=== PATIENT | male | born 1975 | race African-American/Black ===

== ENCOUNTER 2022-11-10 09:28 | Outpatient (CLI) | payer OTHER, MEDICAID, SELFPAY | END 2022-11-10 09:29 | disposition home or self-care (01) | PROVIDERS: PCP Emergency Medicine; Visit Provider Surgery | DX: Z01.812 Encounter for preprocedural laboratory examination (principal); K40.90 Unilateral inguinal hernia, without obstruction or gangrene, not specified as recurrent | CPT/HCPCS: 36415; 86850; 86900; 86901 ==

== ENCOUNTER 2022-11-13 00:11 | Day surgery (SDC) | payer OTHER, MEDICAID, SELFPAY ==
[2022-09-01 14:29] VITALS: BMI 22.8
--- NOTE | 2022-09-01 14:36 | PC.NURSE ---
Report to the Outpatient Waiting Room, entrance under the green pavilion located off [facility], at time 0800 on date _09/08/22_. Planned Procedure Time: _1000. Time changes happen often and if your time is changed the preop area will call you the afternoon before. - You and your visitor will be asked to self-screen and do not enter if you have any COVID symptoms. - Only one visitor is requested with a max of two and NO children visitors are allowed at this time. - The patient visitor may be requested to leave or wait in car when not with patient due to distancing restrictions. - A mask is optional within the hospital at this time. Patients may have clear liquids (water, carbonated beverages, clear teas, apple juice) until 3 hours prior to surgery with a maximum of 20 ounces. - No food from midnight until time of surgery - Infants may have breast milk until 4 hours before surgery, formula 6 hours prior to surgery. - Children will be allowed to drink immediately following surgery. If applicable, please bring a bottle or sippy cup to assist with drinking. Juice, water, soda, and popsicles are readily available. For infants on formula, please bring formula the day of surgery. Pacifiers are allowed. Take the following medications with a SIP of water the morning of surgery: NONE DO NOT STOP ANY OF YOUR OTHER PRESCRIPTION MEDICATIONS PRIOR TO SURGERY ?EXCEPT THE FOLLOWING Medications to discontinue per physician NONE Date to take last dose Please no make-up, nail chinese, hairspray, perfume, deodorant, or body powder the day of surgery. No jewelry (including any body piercings) or valuables the day of surgery, leave them at home. Please take a shower or bath the night before, or the morning of, surgery with an antibacterial soap, HIBICLENS soap. Wear comfortable, loose fitting clothing. Children are encouraged to wear pajamas. - Jewelry must be removed prior to entering the operating room. Rings and piercings that are not removed may be cut off. - The hospital will not accept responsibility for valuables. - Please leave all valuables, including medications, at home the day of surgery. If you are going home after surgery, a licensed pile driver operator barge mounted must drive you home. - NO public transportation without another adult if you receive anesthesia. - We recommend that an adult stay with you for 24 hours following discharge. - We also recommend that you do not drive, make important decision, drink alcoholic beverages, or take any drugs that were not prescribed by your health care provider for at least 24 hours after your discharge time. For Pediatric surgeries, we recommend two adults accompany the child home. Follow any additional instructions given to you from your surgeon. If you or anyone in your household have experienced Covid symptoms in the past week, please notify your surgeon or the nurse liaison at the phone number below for possible testing. Telephone instructions given to patient_and asked if any additional questions and then verbalized understanding. Patient advised to call surgeon office or pre surgery nurse liaison [phone] if any additional questions.
--- NOTE | 2022-11-10 09:24 | PC.NURSE ---
Report to the Outpatient Waiting Room, entrance under the green pavilion located off [facility], at time 8:30 on date 11/13/22. Planned Procedure Time: 10:30. Time changes happen often and if your time is changed the preop area will call you the afternoon before. - You and your visitor will be asked to self-screen and do not enter if you have any COVID symptoms. - Only one visitor is requested with a max of two and NO children visitors are allowed at this time. - The patient visitor may be requested to leave or wait in car when not with patient due to distancing restrictions. - A mask is optional within the hospital at this time. Patients may have clear liquids (water, carbonated beverages, clear teas, apple juice) until 3 hours prior to surgery (7:30) with a maximum of 20 ounces. - No food from midnight until time of surgery Take the following medications with a SIP of water the morning of surgery: N/A DO NOT STOP ANY OF YOUR OTHER PRESCRIPTION MEDICATIONS PRIOR TO SURGERY EXCEPT THE FOLLOWING Medications to discontinue per physician: N/A Date to take last dose: N/A Please no make-up, nail [place] islander, hairspray, perfume, deodorant, or body powder the day of surgery. No jewelry (including any body piercings) or valuables the day of surgery, leave them at home. Please take a shower or bath the night before, or the morning of, surgery with an antibacterial soap (HIBICLENS). Wear comfortable, loose fitting clothing. - Jewelry must be removed prior to entering the operating room. Rings and piercings that are not removed may be cut off. - The hospital will not accept responsibility for valuables. - Please leave all valuables, including medications, at home the day of surgery. If you are going home after surgery, a licensed contract driver must drive you home. - NO public transportation without another adult if you receive anesthesia. - We recommend that an adult stay with you for 24 hours following discharge. - We also recommend that you do not drive, make important decision, drink alcoholic beverages, or take any drugs that were not prescribed by your health care provider for at least 24 hours after your discharge time. Follow any additional instructions given to you from your surgeon. If you or anyone in your household have experienced Covid symptoms in the past week, please notify your surgeon or the nurse liaison at the phone number below for possible testing. Telephone instructions given to PT - WILBERT PERSON and asked if any additional questions and then verbalized understanding. Patient advised to call surgeon office or pre surgery nurse liaison [phone] if any additional questions.
[2022-11-10 09:34] VITALS: BMI 22.8
[2022-11-13] VITALS (10 sets, daily range): BP systolic 110–139; BP diastolic 68–97; PULSE 49–62; RESP 10–18; TEMP 36.4–36.6; O2SAT 99–100
--- NOTE | 2022-11-13 07:14 | PM.SD2 ---
Same Day Admit/Disch: HPI History of Present Illness Chief complaint: right inguinal hernia Narrative: Abril Akers is a 47 year old male who was moving some ladders at work and felt pain in his right groin. He later noticed a bulge there. It had continued to be painful and sore. He was seen in the office and was found to have a right inguinal hernia. He is taken to surgery now for robotic laparoscopic repair. He had a left inguinal hernia repair done open in 2019. [facility] Surgical History Surgical History History of left inguinal hernia repair February 2019 with mesh, OA Dr. Douglas Social History Social History Smoking status: Never smoker Alcohol intake: current Alcohol use details: VERY RARE Substance use: never Substance use type: does not use Living arrangements: alone Spiritual care concerns: No Same Day Admit/Disch: Med Pre-admit Medications Home Medications Medication Instructions Recorded Confirmed Type ketorolac 10 mg tablet 10 mg PO Q6H 4 days #16 tabs 11/13/22 Rx oxycodone-acetaminophen 5 mg-325 1 - 2 tablet PO Q6H PRN pain #10 11/13/22 Rx mg tablet (Percocet) tabs Exam Const: General: comfortable, no acute distress, alert and awake HENMT: Head: normocephalic and atraumatic Mouth: Yes Normal oral and palatal mucosa present Eyes: Conjunctivae: conjunctivae normal Pupils: Equal, round and reactive pupils present EOM: EOMs intact bilaterally Neck: Neck: normal visual inspection, no lymphadenopathy and nontender Resp: Effort & Inspection: normal respiratory effort Auscultation: clear to auscultation bilaterally Cardio: Rate: regular rate Rhythm: regular rhythm Heart sounds: no gallops, no murmurs and no rubs GI: Inspection: non-distended GI Palp: Yes Soft to palpation, No Tenderness to palpation present (GI), No Hepatomegaly present and No Splenomegaly present : Male General Exam: Yes hernia (Reducible hernia high in the right inguinal canal. Bulges with cough.) Penis: Yes normal penis Scrotum: scrotum normal Testes: Testes normal Skin: Lesions: no lesions Rashes: no rashes Neuro: General: no focal motor deficits and CN's II-XI intact bilaterally Cranial nerves: Yes Equal, round and reactive pupils present, Yes Bilaterally intact EOM present, Yes facial symmetry and Yes Midline tongue present Speech: normal speech Motor exam (neuro): 5/5 motor strength present throughout and Motor abnormalities not present Extrem: General: no clubbing, cyanosis or edema and edema Psych: Affect: normal affect Thought process: Normal thought process present Insight: Good insight present (Psych) DS: Summary Time Spent with Patient Time attestation: Total time spent providing and/or coordinating discharge services: DS: Admitting Diagnosis Discharge Date 11/13/2022 Admitting Diagnosis Right inguinal hernia-plan to repair with robotic laparoscopic technique. The procedure the risks the benefits and the usual recovery time have been discussed. The use of mesh has been discussed. The differences between this technique and his previous hernia repair were discussed. All questions were answered. He understands and agrees to go ahead. Discharge Plan Discharge Patient Disposition: Home, Self-Care Discharge Instructions: 1. May shower the day after surgery over incisions. 2. Call office for: -Wound increasingly painful or bleeding -Vomiting -Fever of greater than 101 degrees 3. Expect some blood on dressing and old blood on skin. 4. If no bowel movement for three days, take 1 oz. (30 ml) Milk of Magnesia, if no results, take Fleets enema. 5. No heavy lifting > 15-20 pounds for 2 weeks. 6. No driving for 3 days or while taking narcotic pain medications. 7. Up walking 10-30 minutes three times per day.
[2022-11-13] MEDS: ACETAMINOPHEN 500 MG TABLET 1000 MG PO (09:10)
[2022-11-13] MEDS: LACTATED RINGERS 1,000 ML 30 ML IV CONT ×3 (09:20→13:51)
--- NOTE | 2022-11-13 09:50 | P.PNAN_ITS ---
Anes - Initial Pre Proc Eval Procedure: Operation Date: 11/13/22 10:30 Proposed Procedures p Robotic Laparoscopic Repair Right Inguinal Hernia - Isac Douglas MD Date/Time: 11/13/22 09:50 Surgeon: Isac Douglas MD Pre Op Diagnosis: right inguinal hernia Patient Data Age: 47 Gender: M Height: 1.73 m Weight: 68.1 kg Allergies Allergy/AdvReac Type Severity Reaction Status Date / Time No Known Allergies Allergy Verified 11/13/22 08:51 Home Medications Medication Instructions Recorded Confirmed Type No Home Medications 08/27/22 11/10/22 History Patient hx anesthesia problems: none Family hx anesthesia problems: none Results Review: All pre-operative results and documents have been reviewed as part of the pre- operative evaluation. [facility] Surgical History Surgical History History of left inguinal hernia repair February 2019 with mesh, OA Dr. Douglas Social History Social History Smoking status: Never smoker Alcohol intake: current Alcohol use details: VERY RARE Substance use: never Substance use type: does not use Living arrangements: alone Spiritual care concerns: No Anes - Eval Final PreProcedure Day of Procedure 11/13/22 09:50 Patient weight: normal Heart: regular rate and rhythm Lungs: clear to auscultation Airway: Mallampati scale class II Neurological: alert and oriented Last oral intake: >/= 8 hours ASA classification: I Emergent: no Anesthetic plan: proceed Anesthesia type and monitoring: general ETT and standard monitoring Results Review: All pre-operative results and documents have been reviewed as part of the pre- operative evaluation. Informed Consent: The patient's anesthetic plan and its attendant risks and benefits were discussed with the patient/family/POA. Questions were solicited and answers provided to the satisfaction of the patient/family/POA.
[2022-11-13] MEDS: KETOROLAC 15 MG/ML VIAL (*BKC) IV PUSH (10:08)
--- NOTE | 2022-11-13 10:33 | WPDHPUPDATE1 ---
History and Physical Update Update Date/Time: 11/13/22 10:33 History and Physical has been reviewed, including an updated exam of the patient. There are NO changes in the patient's condition. Risks, benefits, and alternatives have been discussed and questions answered. Patient agrees to proceed with procedure.
[2022-11-13] MEDS: ceFAZolin 2 GM/D5W 50 ML 2 GM/50 ML BAG IVPB (10:41)
[2022-11-13] MEDS: BUPIVACAINE/EPINEPHRINE 0.5% 50 ML VIAL 30 ML INFILTRATE (11:17)
--- NOTE | 2022-11-13 12:40 | W.PM.PROC2 ---
Procedure Note - Detailed Date of Procedure 11/13/22 Pre-op Diagnosis right inguinal hernia Post-op Diagnosis Same Procedure Performed Robotic laparoscopic repair right inguinal hernia with 17 x 12 cm 3D max mesh Surgeon Isac Douglas MD Lap Runner Wesley PARSONS Anesthesia General and Local (0.25% Marcaine with epinephrine) Indications Patient was at work moving ladders and noticed discomfort in the right groin. He noticed a bulge in persistent discomfort there. He was seen in the office and found to have a right inguinal hernia. He is taken to surgery now for robotic laparoscopic repair Findings Patient was noted to have an indirect right inguinal hernia. Description of Procedure Patient was taken to surgery and induced into general anesthesia. The abdomen is prepped draped. The initial trocar was then applied Medical optical 5 mm trocar was placed in the supraumbilical position. After initially being placed, we insufflated and found that we were retroperitoneal in location. Insufflation was stopped of the trocar was advanced into the general peritoneal cavity. We then reinsufflated again with the camera in position. Although the location was good with no injury, there had been quite a bit of CO2 insufflation of the retroperitoneum which did involve the tissues around the right inguinal hernia. This improved as the procedure progressed but did initially make things more difficult. We then placed the right and left 8 mm robotic trocars under direct visualization. The supraumbilical 5 mm port was then exchanged for an 8 mm robotic trocar. The robot was brought into the field. The camera arm was docked and the camera was targeted. Arms 1 and 3 were then docked and instruments placed and positioned under direct visualization. The surgeon then went to the robotic console. Incision was made in the peritoneum above the inguinal region. A retroperitoneal flap was then created. A lot of the subcutaneous or retroperitoneal gas episode sided but some was still present. This did not really impede the dissection. In some ways it may have facilitated it. The peritoneal flap was created laterally and medially. Medially the dissection was continued to the pubis and a little posterior to that. The median umbilical ligament was divided. More laterally the peritoneal flap was dissected down below the pectinate line. Then attention was turned to the indirect hernia. The hernia sac and some lipomatous tissue was dissected from the inguinal canal. Hernia sac was carefully dissected away from the vas deferens and cord vessels. Care was taken to avoid injury to these cord structures. Careful dissection and some cautery was used to dissect the hernia sac and the lipomatous tissue away from the cord structures and eventually dissect well posterior to them with the peritoneal flap. Hemostasis was achieved throughout the surgery with cautery. A 17 x 12 cm 3D max mesh was then placed into the field. It was positioned over the hernia defect and in such a manner as to cover for any other types of hernia development. The mesh was then sutured in place with 3-0 Vicryl suture. One stitch was placed in the pubis. Sutures were placed in the anterior aspect of the mesh, 1 medial to the inferior epigastric vessels and 1 lateral to the inferior epigastric vessels. The mesh was then in good position. Two 0 V lock was then used and in running fashion the peritoneal flap was then closed. Both the V lock and the 3-0 Vicryl suture needles were then removed from the field. All looked good. We evacuated CO2 and undocked the robot. The trocars were removed. Skin closed with subcuticular 4-0 Monocryl skin suture. Wounds were dressed with Exofin surgical adhesive. The patient was awakened and taken to recovery in good condition. Sponge and needle counts were correct x2. Implants 17 x 12 cm 3D max mesh Estimated Blood Loss -5 Drains No Packing No Pathology None sent
--- NOTE | 2022-11-13 14:30 | SUR.PHASEII ---
PATIENT GRIMACING BUT REFUSING TO TAKE ANY PAIN MED INCLUDING KETOROLAC.
== END 2022-11-13 15:54 | disposition home or self-care (01) ==
PROVIDERS: PCP Emergency Medicine; Visit Provider Surgery
PROC: 8E0Y4CZ Robotic Assisted Procedure of Lower Extremity, Percutaneous Endoscopic Approach (ICD-10-PCS; CPT 49650; principal; 2022-11-13 10:30)
DX: K40.90 Unilateral inguinal hernia, without obstruction or gangrene, not specified as recurrent (principal)
CPT/HCPCS: 49650; S2900; 36415; 86850; 86900; 86901; A9270; C1781; J0690; J1100; J1885; J2250; J2405; J2704; J2710; J3010; J7030; J7120

== ENCOUNTER 2024-02-02 11:59 | Emergency (ER) | payer OTHER, SELFPAY ==
[2024-02-02 12:02] VITALS: BP 130/66; PULSE 66; RESP 16; TEMP 36.8; O2SAT 99
--- NOTE | 2024-02-02 12:26 | ED.GENADULT ---
HPI - General Adult General Chief complaint: Wound/Laceration Stated complaint: bee sting Time Seen by Provider: 02/02/24 12:10 History of Present Illness HPI narrative: Patient is a 48-year-old male who presents to the emergency department this evening complaining of a wasp sting that occurred while he was at work. 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 Patient states that it causes him some pain since but denies any additional symptoms include being any significant swelling, shortness of breath, chest pain. Patient states that he has been started by bees and wasps in the past a lot when he was a kid and never developed any allergic reactions to any of the stings. He is currently denying any additional symptoms or concerns at this time. Related Data Home Medications Medication Instructions Recorded Confirmed No Home Medications 11/30/22 11/30/22 Allergies Allergy/AdvReac Type Severity Reaction Status Date / Time No Known Allergies Allergy Verified 11/30/22 08:52 Review of Systems Review of Systems: All systems are reviewed and are negative unless stated otherwise in the HPI. [facility] Surgical History Surgical History H/O right inguinal hernia repair Robotic laparoscopic repair right inguinal hernia with 17 x 12 cm 3D max mesh 11/13/[address] Douglas. History of left inguinal hernia repair February 2019 with mesh, OA Dr. Douglas Social History Social History Smoking status: Never smoker Alcohol intake: current Alcohol use details: VERY RARE Substance use: never Substance use type: does not use Living arrangements: alone Spiritual care concerns: No Exam Narrative: General: Alert, awake, afebrile, in no acute distress. HEENT: PERRL, no rhinorrhea, no post nasal drip, oropharynx clear, a small area of tenderness over upper left parietal lesion, no significant swelling or erythema. Cardiovascular: Regular rate and rhythm, no murmurs, rubs or gallops, no peripheral edema. Respiratory: Clear to auscultation bilaterally, no tachypnea, no wheezing, no rhonchi, no rubs, no respiratory distress. Abdomen: Soft, nontender, nondistended, no rebound, no guarding, no peritoneal signs. Musculoskeletal: No joint swelling or deformity, normal muscle tone. Skin: No rashes or petechia, no signs of infection. Psychiatric: Alert and oriented, normal behavior and judgment for situation. Neurological: Alert and oriented to person, place, and time. Follows all commands. No focal deficits, speech is clear and fluent. Course Vital Signs Vital signs: Vital Signs Temperature 98.3 F 02/02/24 12:02 Pulse Rate 66 02/02/24 12:02 Respiratory Rate 16 02/02/24 12:02 Blood Pressure 130/66 02/02/24 12:02 Pulse Oximetry 99 02/02/24 12:02 Oxygen Delivery Room Air 02/02/24 12:02 Temperature 98.3 F 02/02/24 12:02 Pulse Rate 66 02/02/24 12:02 Respiratory Rate 16 02/02/24 12:02 Blood Pressure 130/66 02/02/24 12:02 Pulse Oximetry 99 02/02/24 12:02 Oxygen Delivery Room Air 02/02/24 12:02 Medical Decision Making [facility] Narrative Medical decision making narrative: The patient was evaluated by myself in the emergency department. History is obtained from patient who is an independent historian and physical exam was performed. External medical records were reviewed at this time. Patient was administered 125 mg of IM Solu-Medrol. Differential diagnosis considerations include allergic reaction, insect bite, and cellulitis. Comorbidities impacting this visit include none. I have evaluated and discussed social determinants of health with the patient that could potentially impact subsequent diagnosis and treatment plans. On repeat assessment of the patient, reevaluation r
[2024-02-02] MEDS: methylPREDNISolone SOD SUCC 125 MG VIAL IM (12:40)
== END 2024-02-02 12:47 | disposition home or self-care (01) ==
LOC: ANHED 12:39
PROVIDERS: Emergency Provider Emergency Medicine; PCP Emergency Medicine
DX: T63.461A Toxic effect of venom of wasps, accidental (unintentional), initial encounter (principal)
CPT/HCPCS: 96372; 99283; J2919